=== PATIENT | male | born 1960 | race Two or more races ===

== ENCOUNTER 2023-11-05 16:00 | Inpatient (IN) | payer SELFPAY ==
[~2023-11-05] VITALS: Ht 175.3 cm; Wt 106.1 kg
[2023-11-05] MEDS ORDERED: HYDROCODONE/APAP 10/325MG TABLET ONE ×2 (18:07→18:08)
[2023-11-05] MEDS: HYDROCODONE/APAP 10/325MG TABLET PO ONE (18:15)
[2023-11-05 19:26] LABS: BASOPHILS # (AUTO) 0.1 K/uL (0.0-0.2); BASOPHILS % (AUTO) 1.7 % (0.0-2.0); EOSINOPHILS # (AUTO) 0.3 K/uL (0.0-0.7); EOSINOPHILS % (AUTO) 5.5 % (0.0-6.0); HEMATOCRIT 25 % (39-51); HEMOGLOBIN 8.2 g/dL (13.5-17.5); LYMPHOCYTES # (AUTO) 0.6 K/uL (0.8-4.8); LYMPHOCYTES % (AUTO) 11.2 % (20.0-44.0); MEAN CORPUSCULAR HEMOGLOBIN 30 PG (26.0-33.0); MEAN CORPUSCULAR HGB CONC 33 g/dl (31.0-36.0); MEAN CORPUSCULAR VOLUME 90 fL (80-96); MONOCYTES # (AUTO) 0.5 K/uL (0.1-1.30); MONOCYTES % (AUTO) 8.6 % (2.0-12.0); NEUTROPHILS # (AUTO) 3.9 K/uL (1.8-8.9); PLATELET COUNT (AUTO) 251 K/uL (150-450); RED BLOOD CELL COUNT(AUTO) 2.77 MIL/uL (4.5-6.0); RED CELL DISTRIBUTION WIDTH 16.7 % (11.5-15.0); WHITE BLOOD COUNT (AUTO) 5.3 K/uL (4.3-11.0)
[2023-11-05 19:34] LABS: CALCIUM, SERUM 8.3 mg/dL (8.5-10.1); CREATININE 2.5 mg/dL (0.6-1.3); POTASSIUM 4.2 mmol/L (3.5-5.1)
[2023-11-05] MEDS ORDERED: MAG HYDROX/AL HYDROX/SIMETH 30 ML UDC PO PRN (20:30)
[2023-11-05] MEDS ORDERED: ONDANSETRON HCL/PF 4 MG/2 ML VIAL IVP PRN (20:30)
[2023-11-05] MEDS ORDERED: ZOLPIDEM TARTRATE 5 MG TABLET PO PRN (20:30)
[2023-11-05] MEDS ORDERED: MAGNESIUM HYDROXIDE 30 ML UDC PO PRN (20:30)
[2023-11-05 21:30] VITALS: BP 147/68; TEMP 97.7; O2SAT 95
[2023-11-05] MEDS: HEPARIN SODIUM, PORCINE 5000 UNITS/1 ML VIAL SQ SCH (22:22)
[2023-11-05] MEDS: IV NS 0.9% 1,000 ML IV PRN (22:28)
[2023-11-05] MEDS ORDERED: HYDR-4077 PO (23:38)
[2023-11-05] MEDS ORDERED: CYAN-51 PO (23:38)
[2023-11-05] MEDS ORDERED: SENN-18 PO (23:38)
[2023-11-05] MEDS ORDERED: ATOR80TA PO (23:38)
[2023-11-05] MEDS ORDERED: PANT40TA49 PO (23:38)
[2023-11-05] MEDS ORDERED: DOXA4TAB2 PO (23:38)
[2023-11-05] MEDS ORDERED: CLON1PAT2 TD (23:38)
[2023-11-05] MEDS ORDERED: ISOS60TA72 PO (23:38)
[2023-11-05] MEDS ORDERED: ESCI10TA PO (23:38)
[2023-11-05] MEDS ORDERED: POLY17PO4 PO (23:38)
[2023-11-05] MEDS ORDERED: CARV3.122 PO (23:38)
[2023-11-05] MEDS ORDERED: LEVO75TA7 PO (23:38)
[2023-11-05] MEDS ORDERED: NICO-760 TD (23:38)
[2023-11-05] MEDS ORDERED: ASPI-1420 PO (23:38)
[2023-11-05] MEDS ORDERED: NIFE60TA2 PO (23:38)
[2023-11-05] MEDS ORDERED: FERR325T23 PO (23:38)
[2023-11-06 06:43] LABS: BASOPHILS % (AUTO) 0.9 % (0.0-2.0); EOSINOPHILS # (AUTO) 0.4 K/uL (0.0-0.7); EOSINOPHILS % (AUTO) 7.1 % (0.0-6.0); HEMATOCRIT 25 % (39-51); HEMOGLOBIN 8.4 g/dL (13.5-17.5); LYMPHOCYTES # (AUTO) 0.8 K/uL (0.8-4.8); LYMPHOCYTES % (AUTO) 14.5 % (20.0-44.0); MEAN CORPUSCULAR HEMOGLOBIN 30 PG (26.0-33.0); MEAN CORPUSCULAR HGB CONC 33 g/dl (31.0-36.0); MEAN CORPUSCULAR VOLUME 92 fL (80-96); MONOCYTES # (AUTO) 0.4 K/uL (0.1-1.30); MONOCYTES % (AUTO) 8.3 % (2.0-12.0); NEUTROPHILS # (AUTO) 3.6 K/uL (1.8-8.9); NEUTROPHILS % (AUTO) 69.2 % (43.0-81.0); PLATELET COUNT (AUTO) 247 K/uL (150-450); RED BLOOD CELL COUNT(AUTO) 2.76 MIL/uL (4.5-6.0); RED CELL DISTRIBUTION WIDTH 17.3 % (11.5-15.0); WHITE BLOOD COUNT (AUTO) 5.3 K/uL (4.3-11.0)
[2023-11-06 06:47] LABS: CALCIUM, SERUM 8.1 mg/dL (8.5-10.1); CREATININE 2.4 mg/dL (0.6-1.3); MAGNESIUM 2.3 mg/dL (1.8-2.4); POTASSIUM 3.8 mmol/L (3.5-5.1)
[2023-11-06 07:15] LABS: THYROID STIMULATING HORMONE 29.975 uIU/mL (0.358-3.74)
[2023-11-06 08:20] VITALS: BP 189/91; TEMP 97.9; O2SAT 95
[2023-11-06] MEDS: PANTOPRAZOLE 40 MG TABLET.DR PO SCH (08:20)
[2023-11-06] MEDS: hydrALAZINE HCL 25 MG TABLET PO ONE (08:52)
[2023-11-06 12:52] LABS: APPEARANCE,URINE CLEAR (CLEAR); BILIRUBIN,URINE NEGATIVE (NEGATIVE); BLOOD, URINE NEGATIVE Ery/uL (NEGATIVE); COLOR,URINE YELLOW (YELLOW); KETONES,URINE TRACE mg/dL (NEGATIVE); LEUKOCYTE ESTERASE ,URINE TRACE (NEGATIVE); NITRITE, URINE NEGATIVE (NEGATIVE); PROTEIN,URINE TRACE mg/dl (NEGATIVE); UGLUCOSE NEGATIVE (NEGATIVE)
[2023-11-06 13:39] LABS: ADD URINE CULTURE YES; BACTERIA,URINE 2+ /HPF (None Seen); MUCUS,URINE Few /LPF (None Seen); RBC,URINE NONE SEEN /HPF (0-2); SQUAMOUS EPITHELIAL CELL,UR None Seen /HPF (None Seen)
[2023-11-06 16:08] VITALS: BP 187/91; TEMP 98.6; O2SAT 94
[2023-11-06] MEDS: hydrALAZINE HCL IV 20 MG VIAL IV PRN (16:30)
[2023-11-06 17:10] VITALS: BP 154/82
[2023-11-06] MEDS: ACETAMINOPHEN 325 MG TABLET PO PRN (18:51)
[2023-11-06 19:39] LABS: EOSINOPHIL,URINE Few
[2023-11-06 22:08] VITALS: TEMP 98.2; O2SAT 96
[2023-11-06] MEDS ORDERED: CLONIDINE HCL 0.2MG/24H PTWK 1 EA PATCH TD SCH (22:30)
[2023-11-06] MEDS: ASPIRIN EC 81 MG TABLET.DR PO SCH (22:32)
[2023-11-06] MEDS: hydrALAZINE HCL 50 MG TABLET PO SCH (22:32)
[2023-11-06] MEDS: CARVEDILOL 3.125 MG TABLET PO SCH (22:32)
[2023-11-06] MEDS: DOXAZOSIN MESYLATE (1 MG) 1 MG TABLET ONE (22:38)
[2023-11-06] MEDS: DOXAZOSIN MESYLATE (4 MG) 4 MG TABLET PO SCH (22:40)
[2023-11-07] VITALS (7 sets, daily range): BP systolic 148–173; BP diastolic 77–90; TEMP 97.5–99.7; O2SAT 95–98
[2023-11-07 06:30] LABS: BASOPHILS % (AUTO) 0.8 % (0.0-2.0); EOSINOPHILS # (AUTO) 0.3 K/uL (0.0-0.7); EOSINOPHILS % (AUTO) 6.4 % (0.0-6.0); HEMATOCRIT 25 % (39-51); HEMOGLOBIN 8.3 g/dL (13.5-17.5); LYMPHOCYTES # (AUTO) 0.9 K/uL (0.8-4.8); LYMPHOCYTES % (AUTO) 16.4 % (20.0-44.0); MEAN CORPUSCULAR HEMOGLOBIN 30 PG (26.0-33.0); MEAN CORPUSCULAR HGB CONC 33 g/dl (31.0-36.0); MEAN CORPUSCULAR VOLUME 91 fL (80-96); MONOCYTES # (AUTO) 0.4 K/uL (0.1-1.30); NEUTROPHILS # (AUTO) 3.7 K/uL (1.8-8.9); NEUTROPHILS % (AUTO) 68.4 % (43.0-81.0); PLATELET COUNT (AUTO) 265 K/uL (150-450); RED BLOOD CELL COUNT(AUTO) 2.77 MIL/uL (4.5-6.0); RED CELL DISTRIBUTION WIDTH 17.9 % (11.5-15.0); WHITE BLOOD COUNT (AUTO) 5.4 K/uL (4.3-11.0)
[2023-11-07 06:51] LABS: ALBUMIN 2.6 g/dL (3.4-5.0); BILIRUBIN,TOTAL 0.5 mg/dL (0.2-1.0); CREATININE 2.4 mg/dL (0.6-1.3); MAGNESIUM 2.2 mg/dL (1.8-2.4); PHOSPHORUS 2.6 mg/dL (2.5-4.9); POTASSIUM 3.8 mmol/L (3.5-5.1); TOTAL PROTEIN, SERUM 6.4 g/dL (6.4-8.2)
[2023-11-07] MEDS: LEVOTHYROXINE SODIUM 75 MCG TABLET PO SCH (06:58)
[2023-11-07] MEDS: Z GUARD REMEDY 4 OZ OINT TP PRN (08:39)
[2023-11-07] MEDS: ISOSORBIDE MONONITRATE (30MG) 30 MG TAB.SR.24H PO SCH (08:42)
[2023-11-07] MEDS: CYANOCOBALAMIN 500 MCG TABLET PO SCH (08:42)
[2023-11-07] MEDS: NIFEDIPINE XL 60 MG TAB.ER.24 PO SCH (08:42)
[2023-11-07] MEDS: FERROUS SULFATE (325 MG) 325 MG/TAB TABLET PO SCH (08:43)
[2023-11-07] MEDS: CARVEDILOL 3.125 MG TABLET PO SCH (08:43)
[2023-11-07] MEDS: ESCITALOPRAM OXALATE (10 MG) 10 MG TABLET PO SCH (08:43)
[2023-11-07] MEDS: POLYETHYLENE GLYCOL 3350 17 GM POWD.PACK PO SCH (08:43)
[2023-11-07] MEDS: NICOTINE PATCH (7MG) 7 MG PATCH.TD24 TD SCH (08:43)
[2023-11-07] MEDS: SENNOSIDES 8.6 MG TABLET PO SCH (21:22)
[2023-11-07] MEDS: ATORVASTATIN 40 MG TABLET PO SCH (21:22)
[2023-11-08] MEDS: HYDROCODONE/APAP 5/325MG TABLET PO PRN (02:39)
[2023-11-08 05:40] VITALS: BP 145/68; TEMP 97.5; O2SAT 96
[2023-11-08 07:55] LABS: BASOPHILS % (AUTO) 0.6 % (0.0-2.0); EOSINOPHILS # (AUTO) 0.4 K/uL (0.0-0.7); EOSINOPHILS % (AUTO) 7.1 % (0.0-6.0); HEMATOCRIT 24 % (39-51); LYMPHOCYTES # (AUTO) 0.7 K/uL (0.8-4.8); LYMPHOCYTES % (AUTO) 14.5 % (20.0-44.0); MEAN CORPUSCULAR HEMOGLOBIN 31 PG (26.0-33.0); MEAN CORPUSCULAR HGB CONC 33 g/dl (31.0-36.0); MEAN CORPUSCULAR VOLUME 92 fL (80-96); MONOCYTES # (AUTO) 0.3 K/uL (0.1-1.30); MONOCYTES % (AUTO) 6.8 % (2.0-12.0); NEUTROPHILS # (AUTO) 3.6 K/uL (1.8-8.9); PLATELET COUNT (AUTO) 235 K/uL (150-450); WHITE BLOOD COUNT (AUTO) 5.1 K/uL (4.3-11.0)
[2023-11-08 08:00] VITALS: BP 160/75; TEMP 98.4; O2SAT 98
[2023-11-08 08:07] LABS: PTH, INTACT 44 pg/mL (15-65)
[2023-11-08 08:16] LABS: CALCIUM, SERUM 7.5 mg/dL (8.5-10.1); CREATININE 2.2 mg/dL (0.6-1.3)
[2023-11-08 08:19] LABS: PHOSPHORUS 2.9 mg/dL (2.5-4.9)
[2023-11-08] MEDS: ENSURE ENLIVE CHOC 237 ML CAN PO SCH (09:07)
[2023-11-08 16:00] VITALS: BP 162/82; TEMP 99.3; O2SAT 97
[2023-11-09 08:10] LABS: BASOPHILS % (AUTO) 0.7 % (0.0-2.0); EOSINOPHILS # (AUTO) 0.4 K/uL (0.0-0.7); EOSINOPHILS % (AUTO) 7.2 % (0.0-6.0); HEMATOCRIT 24 % (39-51); LYMPHOCYTES # (AUTO) 0.7 K/uL (0.8-4.8); LYMPHOCYTES % (AUTO) 13.2 % (20.0-44.0); MEAN CORPUSCULAR HEMOGLOBIN 31 PG (26.0-33.0); MEAN CORPUSCULAR HGB CONC 33 g/dl (31.0-36.0); MEAN CORPUSCULAR VOLUME 92 fL (80-96); MONOCYTES # (AUTO) 0.3 K/uL (0.1-1.30); MONOCYTES % (AUTO) 6.6 % (2.0-12.0); NEUTROPHILS # (AUTO) 3.7 K/uL (1.8-8.9); NEUTROPHILS % (AUTO) 72.3 % (43.0-81.0); PLATELET COUNT (AUTO) 220 K/uL (150-450); RED BLOOD CELL COUNT(AUTO) 2.61 MIL/uL (4.5-6.0); RED CELL DISTRIBUTION WIDTH 18.3 % (11.5-15.0); WHITE BLOOD COUNT (AUTO) 5.1 K/uL (4.3-11.0)
[2023-11-09 08:55] VITALS: BP 157/75; TEMP 97.7; O2SAT 100
[2023-11-09 09:20] LABS: CALCIUM, SERUM 7.9 mg/dL (8.5-10.1); CREATININE 2.1 mg/dL (0.6-1.3); MAGNESIUM 1.9 mg/dL (1.8-2.4); PHOSPHORUS 3.2 mg/dL (2.5-4.9); POTASSIUM 3.8 mmol/L (3.5-5.1)
[2023-11-09 16:34] VITALS: BP 166/81; TEMP 97.9; O2SAT 95
[2023-11-09 20:00] VITALS: BP 164/74; TEMP 98.1; O2SAT 100
[2023-11-09] MEDS: CIPROFLOXACIN HCL 500 MG TABLET ONE (20:28)
[2023-11-09] MEDS: CIPROFLOXACIN HCL 250 MG TABLET PO SCH (20:55)
[2023-11-10] VITALS (10 sets, daily range): BP systolic 133–175; BP diastolic 72–89; TEMP 97.2–98.2; O2SAT 97–100
[2023-11-10 08:04] LABS: BASOPHILS % (AUTO) 0.6 % (0.0-2.0); CALCIUM, SERUM 8.1 mg/dL (8.5-10.1); EOSINOPHILS # (AUTO) 0.4 K/uL (0.0-0.7); EOSINOPHILS % (AUTO) 7.6 % (0.0-6.0); HEMATOCRIT 26 % (39-51); HEMOGLOBIN 8.6 g/dL (13.5-17.5); LYMPHOCYTES # (AUTO) 0.6 K/uL (0.8-4.8); MAGNESIUM 1.9 mg/dL (1.8-2.4); MEAN CORPUSCULAR HEMOGLOBIN 30 PG (26.0-33.0); MEAN CORPUSCULAR HGB CONC 33 g/dl (31.0-36.0); MEAN CORPUSCULAR VOLUME 92 fL (80-96); MONOCYTES # (AUTO) 0.4 K/uL (0.1-1.30); MONOCYTES % (AUTO) 7.5 % (2.0-12.0); NEUTROPHILS # (AUTO) 3.9 K/uL (1.8-8.9); NEUTROPHILS % (AUTO) 72.3 % (43.0-81.0); PHOSPHORUS 2.9 mg/dL (2.5-4.9); PLATELET COUNT (AUTO) 202 K/uL (150-450); RED BLOOD CELL COUNT(AUTO) 2.84 MIL/uL (4.5-6.0); RED CELL DISTRIBUTION WIDTH 18.5 % (11.5-15.0); WHITE BLOOD COUNT (AUTO) 5.4 K/uL (4.3-11.0)
[2023-11-10] MEDS: CIPROFLOXACIN HCL 500 MG TABLET PO SCH (09:48)
[2023-11-10 10:10] LABS: *SPE A/G RATIO 0.9 (0.7-1.7); *SPE ALBUMIN 2.9 g/dL (2.9-4.4); *SPE ALPHA-1-GLOBULIN 0.3 g/dL (0.0-0.4); *SPE ALPHA-2-GLOBULIN 0.6 g/dL (0.4-1.0); *SPE GLOBULIN, TOTAL 3.1 g/dL (2.2-3.9); *SPE M-SPIKE Not Observed g/dL (Not Observed); *SPEGAMMA GLOBULIN 1.2 g/dL (0.4-1.8)
[2023-11-10] MEDS ORDERED: ATORVASTATIN 40 MG TABLET PO SCH (22:00)
[2023-11-10] MEDS: HYDROCODONE/APAP 10/325MG TABLET PO PRN (22:57)
[2023-11-11] VITALS: BP 152/72; TEMP 98.8; O2SAT 95
[2023-11-11 05:36] VITALS: BP 158/67; TEMP 98.2; O2SAT 96
[2023-11-11 07:30] VITALS: BP 167/71; TEMP 98.1; O2SAT 96
[2023-11-11 07:38] LABS: BASOPHILS % (AUTO) 0.5 % (0.0-2.0); EOSINOPHILS # (AUTO) 0.4 K/uL (0.0-0.7); EOSINOPHILS % (AUTO) 7.1 % (0.0-6.0); HEMATOCRIT 26 % (39-51); HEMOGLOBIN 8.6 g/dL (13.5-17.5); LYMPHOCYTES # (AUTO) 0.6 K/uL (0.8-4.8); LYMPHOCYTES % (AUTO) 12.4 % (20.0-44.0); MEAN CORPUSCULAR HEMOGLOBIN 31 PG (26.0-33.0); MEAN CORPUSCULAR HGB CONC 34 g/dl (31.0-36.0); MEAN CORPUSCULAR VOLUME 91 fL (80-96); MONOCYTES # (AUTO) 0.5 K/uL (0.1-1.30); MONOCYTES % (AUTO) 9.2 % (2.0-12.0); NEUTROPHILS # (AUTO) 3.6 K/uL (1.8-8.9); NEUTROPHILS % (AUTO) 70.8 % (43.0-81.0); PLATELET COUNT (AUTO) 191 K/uL (150-450); RED BLOOD CELL COUNT(AUTO) 2.81 MIL/uL (4.5-6.0); RED CELL DISTRIBUTION WIDTH 17.6 % (11.5-15.0)
[2023-11-11 08:05] LABS: CALCIUM, SERUM 8.2 mg/dL (8.5-10.1); CREATININE 2.1 mg/dL (0.6-1.3); PHOSPHORUS 2.9 mg/dL (2.5-4.9)
[2023-11-11] MEDS ORDERED: CIPR500S2 PO (13:22)
[2023-11-11 16:00] VITALS: BP 157/80; TEMP 97.3; O2SAT 94
[2023-11-11 20:00] VITALS: BP 144/72; TEMP 98.1; O2SAT 94
[2023-11-11 20:30] VITALS: BP 144/72; TEMP 98.1; O2SAT 94
[2023-11-12 05:00] VITALS: BP 164/85; TEMP 97.8; O2SAT 95
[2023-11-12 07:30] VITALS: BP 159/89; TEMP 98.6; O2SAT 96
[2023-11-12 16:00] VITALS: BP 151/72; TEMP 98.2; O2SAT 96
[2023-11-12 16:49] VITALS: BP 151/72
== END 2023-11-12 18:53 | disposition home or self-care (01) | DRG 640 ==
LOC: ER 16:03 → MED 20:28
PROVIDERS: ADMIT Nurse Practitioner Acute Care
DX: R62.7 Adult failure to thrive (principal); N17.0 Acute kidney failure with tubular necrosis; N39.0 Urinary tract infection, site not specified; D68.69 Other thrombophilia; E03.9 Hypothyroidism, unspecified; N18.9 Chronic kidney disease, unspecified; M89.8X9 Other specified disorders of bone, unspecified site; I12.9 Hypertensive chronic kidney disease with stage 1 through stage 4 chronic kidney disease, or unspecified chronic kidney disease; I25.2 Old myocardial infarction; F17.210 Nicotine dependence, cigarettes, uncomplicated; N20.0 Calculus of kidney; D63.8 Anemia in other chronic diseases classified elsewhere; Z74.09 Other reduced mobility; M79.661 Pain in right lower leg; Z68.34 Body mass index [BMI] 34.0-34.9, adult; E66.9 Obesity, unspecified; B96.4 Proteus (mirabilis) (morganii) as the cause of diseases classified elsewhere; Z98.890 Other specified postprocedural states
CPT/HCPCS: 36415; 71045-TC; 73564-TC; 76770-TC; 80048-TC; 80053-TC; 81001; 82550-TC; 82570-TC; 83735-TC; 83970; 84100-TC; 84155; 84165; 84300-TC; 84443-TC; 85025-TC; 87081-TC; 87086-TC; 97110-TC; 97530-TC; 97535-TC; A4223; G0378; J0360; J1644; J7030; J7070